=== PATIENT | female | born 1955 | race Two or more races ===

== ENCOUNTER 2017-04-01 14:03 | Emergency (ER) | payer MEDICAID, OTHER ==
[~2017-04-01] VITALS: Ht 157.5 cm; Wt 48.5 kg
[2017-04-01 14:22] VITALS: BP 133/71
== END 2017-04-01 14:53 | disposition home or self-care (01) ==
LOC: ER 14:10
DX: B02.9 Zoster without complications (principal)
CPT/HCPCS: 99283; A4606; Z7610

== ENCOUNTER 2018-12-02 21:14 | Emergency (ER) | payer OTHER ==
[~2018-12-02] VITALS: Ht 154.9 cm; Wt 77.1 kg
[2018-12-02 21:17] VITALS: BP 129/82
== END 2018-12-02 23:02 | disposition home or self-care (01) ==
LOC: ER 21:14
DX: S90.122A Contusion of left lesser toe(s) without damage to nail, initial encounter (principal); L85.1 Acquired keratosis [keratoderma] palmaris et plantaris; W22.8XXA Striking against or struck by other objects, initial encounter; Y93.89 Activity, other specified; Y92.89 Other specified places as the place of occurrence of the external cause; Y99.8 Other external cause status
CPT/HCPCS: 73630-TC

== ENCOUNTER 2023-09-02 13:48 | Emergency (ER) | payer OTHER ==
[~2023-09-02] VITALS: Ht 154.9 cm; Wt 77.1 kg
[2023-09-02 15:13] LABS: BASOPHILS % (AUTO) 0.3 % (0.0-2.0); EOSINOPHILS # (AUTO) 0.3 K/uL (0.0-0.7); EOSINOPHILS % (AUTO) 4.8 % (0.0-6.0); HEMATOCRIT 36 % (33-45); HEMOGLOBIN 11.5 g/dL (11.5-14.8); LYMPHOCYTES # (AUTO) 2.1 K/uL (0.8-4.8); MEAN CORPUSCULAR HEMOGLOBIN 27 PG (26.0-33.0); MEAN CORPUSCULAR HGB CONC 32 g/dl (31.0-36.0); MEAN CORPUSCULAR VOLUME 83 fL (82-100); MONOCYTES # (AUTO) 0.5 K/uL (0.1-1.30); NEUTROPHILS # (AUTO) 3.6 K/uL (1.8-8.9); NEUTROPHILS % (AUTO) 55.9 % (43.0-81.0); PLATELET COUNT (AUTO) 240 K/uL (150-450); WHITE BLOOD COUNT (AUTO) 6.5 K/uL (4.3-11.0)
[2023-09-02 15:37] LABS: CALCIUM, SERUM 8.9 mg/dL (8.5-10.1); CREATININE 0.6 mg/dL (0.6-1.3); POTASSIUM 4.5 mmol/L (3.5-5.1)
[2023-09-02] MEDS ORDERED: ERGO500040 PO (15:39)
[2023-09-02 15:45] LABS: LACTIC ACID 0.5 mmol/L (0.4-2.0)
[2023-09-02 15:51] LABS: ALBUMIN 3.5 g/dL (3.4-5.0); BILIRUBIN,TOTAL 0.4 mg/dL (0.2-1.0); TOTAL PROTEIN, SERUM 7.4 g/dL (6.4-8.2)
[2023-09-02] MEDS ORDERED: CT SWABBABLE VALVE TRANS SET 1 EA INFUS.SET MC ONE (17:28)
[2023-09-02] MEDS ORDERED: IV NS 0.9% 250 ML IV ONE (17:28)
[2023-09-02] MEDS ORDERED: IOHEXOL-350 100 ML VIAL IV ONE (17:28)
[2023-09-02 21:35] VITALS: BP 123/81; TEMP 98; O2SAT 100
== END 2023-09-02 21:36 | disposition home or self-care (01) ==
LOC: ER 13:48
DX: R61 Generalized hyperhidrosis (principal); Z79.899 Other long term (current) drug therapy
CPT/HCPCS: 99285; 71275; 71045; 93005; 85025; 83605; 85378; 36415; 80053; 84484; 83880; J7050; Q9967